=== PATIENT | male | born 1985 | race Caucasian/White ===

== ENCOUNTER 2024-11-27 13:52 | Inpatient (IN) | payer MEDICAID, OTHER ==
[~2024-11-27] VITALS: Ht 180.3 cm; Wt 69.3 kg
[2024-11-27 14:25] VITALS: PULSE 87; RESP 17; O2SAT 98
[2024-11-27 15:17] VITALS: PULSE 108; RESP 22; O2SAT 98
--- NOTE | 2024-11-27 16:09 | ED.PDOC ---
History of Present Illness HPI Comments 39-year-old male BIBA with prior medical history with EtOH in the chief complaint of mental health. reports the patient binge drinking for the past two weeks, as well as fentanyl use, last known on Nov 14 2024. Spouse stated the patient was A&Ox4 this morning but eventually dropped the patient off of the crisis Center before the patient went manic. Spouse did not specify when she said manic. Patient has been 5150 before. Crisis Center patient is becoming more altered and was hypertensive of 140 systolic, so the patient was unable to be discharged. When patient arrived to the ER the patient is stiff in his unable to talk. Denies chills, fever, N/V/D, SOB, CP. No other associated symptoms, modifiers, recent injuries or sick contacts present at this time. Chief Complaint: Mental Health Time Seen by MD: 14:45 Primary Care Provider: DONT HAVE ONE Reviewed Notes: Nurses Notes, [employer] Attendant Notes, Medications, Allergies Allergies: Coded Allergies: Procaine (Verified Allergy, Unknown, 11/10/15) Information Source: Patient Mode of Arrival: EMS Severity: Moderate Timing: Hours Duration: Since onset, Hours Prehospital treatment: None Past Medical History Past Medical History (Other): ETOH Surgical History: Denies all surgeries Family History Family History: Reviewed,noncontributory to illness, Unknown Social History Smoker: Unknown Alcohol: Unknown Drugs: Unknown Lives In: Home Unable to Obtain due to: Altered Mental Status All Other Systems: Reviewed and Negative Physical Exam Exam Comments Patient awake and alert but eyes are looking straight up to the ceiling, patient does not respond to my questioning, does not move any extremity General Appearance: Normal, Thin HEENT: Normal ENT Inspection, Pharynx Normal, TMs Normal Neck: Normal, Normal Inspection Respiratory: Lungs Clear, No Respiratory Distress, Normal Breath Sounds Cardiovascular: Normal Peripheral Pulses, Regular Rate/Rhythm Breast Exam: Deferred Gastrointestinal: Non Tender, No Pulsatile Mass, Normal Bowel Sounds, Soft Genitalia: Deferred Pelvic: Deferred Rectal: Deferred Extremities: No calf tenderness, Normal capillary refill, Normal inspection, Normal range of motion, Non-tender, No pedal edema Musculoskeletal : Apperance: Normal Neurologic: Alert, Depressed Affect, No Motor Deficits, Other (Flat, looking at the ceiling. Does not respond to my questioning.) Cerebellar Function: Normal Reflexes: Normal Skin: Dry, Normal Color, Warm Lymphatic: No Adenopathy Was a procedure done? Was a procedure done?: No Differential Dx Considerations may include: Alcohol withdrawal, drug overdose, acute farheen, dehydration electrolyte abnormality X-Ray, Labs, Meds, VS Vital Signs Date Time Temp Pulse Resp B/P (MAP) Pulse Ox O2 Delivery O2 Flow Rate FiO2 11/27/24 17:22 98.7 94 16 130/89 (103) 98 98.7 11/27/24 16:15 116 11/27/24 15:17 108 22 98 Room Air* 0 21 11/27/24 15:14 98.3 108 22 157/103 (121) 98 98.3 11/27/24 14:35 97.8 102 18 146/111 (123) 98 97.8 Lab Test 11/27/24 17:03 11/27/24 16:51 Range/Units Urine Opiates Screen Neg NEGATIVE Urine Fentanyl Screen Pos NEGATIVE Urine Barbiturates Screen Neg NEGATIVE Urine Phencyclidine Screen Neg NEGATIVE Urine Amphetamines Screen Neg NEGATIVE Urine Benzodiazepines Screen Neg NEGATIVE Urine Cocaine Screen Pos NEGATIVE Urine Cannabinoids Screen Neg NEGATIVE White Blood Count 4.8 4.4-10.8 10^3/uL Red Blood Count 4.28 L 4.5-5.90 10^6/uL Hemoglobin 14.6 13.5-17.5 g/dL Hematocrit 42.6 41.0-53.0 % Mean Corpuscular Volume 99.5 80.0-100.0 fL Mean Corpuscular Hemoglobin 34.0 H 28.0-32.0 pg Mean Corpuscular Hemoglobin Concent 34.2 32.0-36.0 g/dL Red Cell Distribution Width 14.3 11.8-14.3 % Platelet Count 236 140-450 10^3/uL Mean Platelet Volume 7.3 6.9-10.8 fL Neutrophils (%) (Auto) 73.7 37.0-80.0 % Lymphocytes (%) (Auto) 11.7 10.0-50.0 % Monocytes (%) (Auto) 13.7 H 0.0-12.0 % Eosinophils (%) (Auto) 0.2 0.0-7.0 % Basophils (%) (Auto) 0.7 0.0-2.0 % Neutrophils # (Auto) 3.6 1.6-8.6 10 ^3/uL Lymphocytes # (Auto) 0.6 0.4-5.4 10 ^3/uL Monocytes # (Auto) 0.7 0-1.3 10 ^3/uL Eosinophils # (Auto) 0 0-0.8 10 ^3/uL Basophils # (Auto) 0 0-0.2 10 ^3/uL Nucleated Red Blood Cells 0.1 % Sodium Level 137 136-145 mmol/L Potassium Level 3.3 L 3.5-5.1 mmol/L Chloride Level 103 98-107 mmol/L Carbon Dioxide Level 22 20-31 mmol/L Anion Gap 12 5-15 Blood Urea Nitrogen < 5 L 9-23 mg/dL Creatinine 0.69 L 0.700-1.30 mg/dL Glomerular Filtration Rate Calc 121 >90 mL/min BUN/Creatinine Ratio 7.2 L 10.0-20.0 Serum Glucose 93 74-106 mg/dL Calcium Level 9.7 8.7-10.4 mg/dL Total Bilirubin 1.2 H 0.2-1.0 mg/dL Aspartate Amino Transferase (AST) 71 H 13-40 U/L Alanine Aminotransferase (ALT) 55 H 7-40 U/L Alkaline Phosphatase 116 46-116 U/L Total Protein 7.4 5.7-8.2 g/dL Albumin 4.6 3.2-4.8 g/dL Salicylates Level < 3.0 -30 mg/dL Acetaminophen Level < 2.0 L 10.0-20.0 UG/ML Plasma/Serum Blood Alcohol < 3.0 <10 mg/dL Current Medications Medications (Trade) Dose Ordered Sig/Sharon Route Start Time Stop Time Status Last Admin Lorazepam (Ativan Inj) 1 mg ONCE ONCE IV 11/27/24 16:15 11/27/24 16:16 DC 11/27/24 16:17 39-year-old male here with potentially alcohol withdrawal/manic episode. He is brought by EMS. At this time patient does not answer my questions. Although he is awake and alert. However while in the ER he did begin to become tremulous. Slowly he was able to communicate with some members of our nursing staff. However nursing staff approached me that he was now tremulous and concern for acute alcohol withdrawal. Given he was tremulous I did order Ativan IV. He was agreeable to take Ativan 0.25 IV only. After the Ativan 0.25, he states he felt much better. And he was able to speak to me. Patient states he drinks sign ificant amount of alcohol proximally 32 oz of hard liquor a day. Patient however does want to become sober. He states he was actively hallucinating and hearing 3 people talk to him at the time. He is tremulous on my examination. CIWA score is greater than 19. Blood work has returned which does demonstrate mild hypokalemia of 3.3, mild hyperbilirubinemia at 1.2, and urine drug screen is positive for both fentanyl and cocaine. At this time I have contacted admitting team for admission. Time of 1ST Reevaluation: 15:15 Reevaluation 1ST: Unchanged Time of 2ND Reevaluation: 16:42 Reevaluation 2ND: Improved Patient Education/Counseling: Diagnosis, Treatment, Prognosis Family Education/Counseling: Diagnosis, Treatment, Prognosis Departure 1 Departure Time of Disposition: 16:42 Impression: Primary Impression: Alcohol withdrawal delirium, acute, hyperactive Additional Impressions: Drug abuse, cocaine type Hyperbilirubinemia Hypokalemia Disposition: ADMITTED INPATIENT Condition: Fair Critical Care Note Critical Care Time?: Yes (35 min-critical care time only) Critical care comment: Patient required immediate assessment by myself seconary acute alcohol withdrawal with delirium and active tremors concerning for significant alcohol withdrawal. Patient was immediately given Ativan IV by myself. Patient required continuous monitoring in the ER . Time spent was actively managing the patient, communicating with nursing staff, communicating with his and the patient Stability Stability form required: No Heart Score Heart Score: Heart Score Response (Comments) Value History N/A 0 EKG N/A 0 Age N/A 0 Risk Factors N/A 0 Troponin N/A 0 Total 0 I personally scribed for CHERELLE MADISON MD ([email or web address]) on 11/27/24 at 16:09. Electronically submitted by Josias Hahn ([email or web address]). CHERELLE MADISON MD November 27, 2024 16:09
[2024-11-27] MEDS: LORazepam 2MG/ML-1ML VIAL IV ONE ×2 (16:17→18:00)
[2024-11-27 17:04] LABS: Basophils # (auto) 0 10 ^3/uL (0-0.2); Basophils % (auto) 0.7 % (0.0-2.0); Eosinophils # (auto) 0 10 ^3/uL (0-0.8); Eosinophils % (auto) 0.2 % (0.0-7.0); Hematocrit 42.6 % (41.0-53.0); Hemoglobin 14.6 g/dL (13.5-17.5); Lymphocytes # (auto) 0.6 10 ^3/uL (0.4-5.4); Lymphocytes % (auto) 11.7 % (10.0-50.0); Mean Corpuscular Hgb Conc. 34.2 g/dL (32.0-36.0); Mean Corpuscular Volume 99.5 fL (80.0-100.0); Monocytes # (auto) 0.7 10 ^3/uL (0-1.3); Monocytes % (auto) 13.7 % (0.0-12.0); Neutrophils # (auto) 3.6 10 ^3/uL (1.6-8.6); Neutrophils % (auto) 73.7 % (37.0-80.0); Nucleated Red Blood Cells % 0.1 %; Platelet Count (auto) 236 10^3/uL (140-450); Red Blood Cells 4.28 10^6/uL (4.5-5.90); Red Cell Distribution Width 14.3 % (11.8-14.3); White Blood Cell 4.8 10^3/uL (4.4-10.8)
[2024-11-27 17:20] LABS: Albumin 4.6 g/dL (3.2-4.8); Alkaline Phosphatase 116 U/L (46-116); Anion Gap 12 (5-15); Calcium 9.7 mg/dL (8.7-10.4); Carbon Dioxide 22 mmol/L (20-31); Chloride 103 mmol/L (98-107); Glucose 93 mg/dL (74-106); Sodium 137 mmol/L (136-145); Total Protein 7.4 g/dL (5.7-8.2)
[2024-11-27 17:20] LABS: Cocaine Screen, Urine Pos (NEGATIVE)
[2024-11-27 17:21] LABS: Bilirubin, Total 1.2 mg/dL (0.2-1.0)
[2024-11-27 17:23] LABS: Amphetamine Screen, Urine Neg (NEGATIVE); Barbiturate Scree,Urine Neg (NEGATIVE); Benzodiazephine Screen, Urine Neg (NEGATIVE); Cannabinoid Screen, Urine Neg (NEGATIVE); Opiate Scree,Urine Neg (NEGATIVE); Phencyclidine Screen, Urine Neg (NEGATIVE)
[2024-11-27 17:23] LABS: Acetaminophen < 2.0 UG/ML (10.0-20.0); Alanine Aminotransferase 55 U/L (7-40); Aspartate Aminotransferase 71 U/L (13-40); BUN/Creatinine Ratio 7.2 (10.0-20.0); Blood Alcohol < 3.0 mg/dL (<10); Blood Urea Nitrogen < 5 mg/dL (9-23); Potassium 3.3 mmol/L (3.5-5.1); Salicylate < 3.0 mg/dL (-30)
[2024-11-27] MEDS: LORazepam 2MG/ML-1ML VIAL IV PRN (18:45)
[2024-11-27] MEDS ORDERED: ONDANSETRON HCL 4 MG/2 ML VIAL IV PRN (19:15)
[2024-11-27] MEDS ORDERED: ACETAMINOPHEN 325 MG TAB PO PRN (19:15)
[2024-11-27] MEDS ORDERED: DOCUSATE SOD 100 MG CAP PO PRN (19:15)
--- NOTE | 2024-11-27 19:27 | DVHHP2 ---
History of Present Illness Reason for Visit: Altered mental status History of Present Illness The patient is a 39-year-old male disorganized with past medical history of mental health issue on 5149 prior, EtOH, and polydrug abuse presented to [facility] ED for evaluation of altered mental status. As reported by , patient had a binge drinking for the past 2 weeks as well as fentanyl use, last known on November 14, 2024. Spouse stated the patient was alert and oriented x4 this morning, but eventually dropped the patient off of the crisis Center before the patient went manic. Spouse did not specify when she said manic. Patient was seen and evaluated in the ED, laboratory data shows WBC 4.8, platelets 236, sodium 137, potassium 3.3, BUN 5, creatinine 0.69, glucose 93, AST 71, ALT 55, total bilirubin 1.2, serum alcohol < 3.0, toxicology positive for fentanyl and cocaine. Patient was given IV Ativan 2 mg x 1, please see medication orders section in the computer. On my assessment, at bedside, patient remains disorganized, unkempt, tremors, restlessness, no diaphoresis, no dizziness, no shortness of breath, no nausea, no vomiting, no fever, no chills. Patient was admitted for further evaluation and medical management. Past Medical History Mental health issue on 5149, EtOH, polydrug abuse. Past Surgical History Denies all surgeries Family History Reviewed, noncontributory to the management of this case. Past Social History The patient lives at home, denies smoking, alcohol or illicit drugs abuse. Review of Systems Constitutional: No: Fever, Chills, Sweats, Weakness, Malaise, Other Eyes: No: Pain, Vision change, Conjunctivae inflammation, Eyelid inflammation, Other, Redness ENT: No: Ear pain, Ear discharge, Nose pain, Nose discharge, Nose congestion, Mouth pain, Mouth swelling, Throat pain, Throat swelling, Other Respiratory: No: Cough, Dry, Shortness of breath, SOB with excertion, Wheezing, Hemoptysis, Pleuritic Pain, Sputum, Wheezing, Other Cardiovascular: No: Chest Pain, Palpitations, Orthopnea, Paroxysmal Noc. Dyspnea, Edema, Lt Headedness, Other Gastrointestinal: No: Nausea, Vomiting, Abdominal Pain, Diarrhea, Constipation, Melena, Hematochezia, Other Genitourinary: No Dysuria, No Frequency, No Incontinence, No Hematuria, No Retention, No Other Musculoskeletal: No: other, neck pain, shoulder pain, arm pain, back pain, hand pain, leg pain, foot pain Skin: No: Rash, Lesions, Jaundice, Bruising, Other Neurological: Confusion, Other (Tremors); No: Weakness, Numbness, Incoordination, Change in speech, Seizures Allergies: Coded Allergies: Procaine (Verified Allergy, Unknown, 11/10/15) Medications Current Medications Medications Dose Ordered Sig/Sharon Route Start Time Stop Time Status Last Admin Dose Admin Lorazepam 2 mg Q2HPRN PRN IV 11/27/24 18:30 11/27/24 18:45 2 MG Sodium Chloride 1,000 ml @ 60 mls/hr [id number] IV 11/27/24 19:15 Ondansetron HCl 4 mg Q4HP PRN IV 11/27/24 19:15 Docusate Sodium 100 mg BIDPRN PRN PO 11/27/24 19:15 Acetaminophen 650 mg Q6HP PRN PO 11/27/24 19:15 Exam Vital Signs Vital Signs Date Time Temp Pulse Resp B/P (MAP) Pulse Ox O2 Delivery O2 Flow Rate FiO2 11/27/24 17:22 98.7 94 16 130/89 (103) 98 98.7 11/27/24 15:17 Room Air* 0 21 General Appearance: Alert, Cooperative, No acute distress, Other (Oriented x2) HEENT: Atraumatic, PERRLA, EOMI, Mucous membr. moist/pink Respiratory: Clear to auscultation, Normal air movement Cardiovascular: Regular rate, Normal S1, Normal S2, No murmurs Abdominal: Normal bowel sounds, Soft, No tenderness, No hepatospenomegaly, No masses Extremities: No clubbing, No cyanosis, No edema, Normal pulses Skin: No rashes, No breakdown Neuro: Normal speech, Normal tone, Sensation intact, Cranial nerves 3-12 NL, Reflexes 2+, Other (Unsteady gait) Psych/Mental Status: Mood NL, Other (Altered mental status) Labs/Xrays Labs Test 11/27/24 17:03 11/27/24 16:51 Range/Units Urine Opiates Screen Neg NEGATIVE Urine Fentanyl Screen Pos NEGATIVE Urine Barbiturates Screen Neg NEGATIVE Urine Phencyclidine Screen Neg NEGATIVE Urine Amphetamines Screen Neg NEGATIVE Urine Benzodiazepines Screen Neg NEGATIVE Urine Cocaine Screen Pos NEGATIVE Urine Cannabinoids Screen Neg NEGATIVE White Blood Count 4.8 4.4-10.8 10^3/uL Red Blood Count 4.28 L 4.5-5.90 10^6/uL Hemoglobin 14.6 13.5-17.5 g/dL Hematocrit 42.6 41.0-53.0 % Mean Corpuscular Volume 99.5 80.0-100.0 fL Mean Corpuscular Hemoglobin 34.0 H 28.0-32.0 pg Mean Corpuscular Hemoglobin Concent 34.2 32.0-36.0 g/dL Red Cell Distribution Width 14.3 11.8-14.3 % Platelet Count 236 140-450 10^3/uL Mean Platelet Volume 7.3 6.9-10.8 fL Neutrophils (%) (Auto) 73.7 37.0-80.0 % Lymphocytes (%) (Auto) 11.7 10.0-50.0 % Monocytes (%) (Auto) 13.7 H 0.0-12.0 % Eosinophils (%) (Auto) 0.2 0.0-7.0 % Basophils (%) (Auto) 0.7 0.0-2.0 % Neutrophils # (Auto) 3.6 1.6-8.6 10 ^3/uL Lymphocytes # (Auto) 0.6 0.4-5.4 10 ^3/uL Monocytes # (Auto) 0.7 0-1.3 10 ^3/uL Eosinophils # (Auto) 0 0-0.8 10 ^3/uL Basophils # (Auto) 0 0-0.2 10 ^3/uL Nucleated Red Blood Cells 0.1 % Sodium Level 137 136-145 mmol/L Potassium Level 3.3 L 3.5-5.1 mmol/L Chloride Level 103 98-107 mmol/L Carbon Dioxide Level 22 20-31 mmol/L Anion Gap 12 5-15 Blood Urea Nitrogen < 5 L 9-23 mg/dL Creatinine 0.69 L 0.700-1.30 mg/dL Glomerular Filtration Rate Calc 121 >90 mL/min BUN/Creatinine Ratio 7.2 L 10.0-20.0 Serum Glucose 93 74-106 mg/dL Calcium Level 9.7 8.7-10.4 mg/dL Total Bilirubin 1.2 H 0.2-1.0 mg/dL Aspartate Amino Transferase (AST) 71 H 13-40 U/L Alanine Aminotransferase (ALT) 55 H 7-40 U/L Alkaline Phosphatase 116 46-116 U/L Total Protein 7.4 5.7-8.2 g/dL Albumin 4.6 3.2-4.8 g/dL Salicylates Level < 3.0 -30 mg/dL Acetaminophen Level < 2.0 L 10.0-20.0 UG/ML Plasma/Serum Blood Alcohol < 3.0 <10 mg/dL Assessment/Plan Assessment/Plan Altered mental status Hypokalemia Polydrug abuse Elevated liver enzymes Plan 1. Admit to telemetry unit 2. Breathing treatment 3. Pain control management 4. Management of fluids and electrolytes 5. Consultation for hospitalist 6. Diagnostic tests chest x-ray 7. DVT prophylaxis on SCDs 8. Repeat labs CBC, CMP in a.m. 9. Continue with current medical management 10. Treatment plan discussed with patient/ and RN. Patient/ verbalized understanding. Plan discussed with: Patient, Other (RN) My Orders Orders - SANDOR LUNDBERG DNP Procedure Category Date Status Time Allergies ELVIN 11/27/24 In Process 19:06 Code Status CODE 11/27/24 Transmitted 19:06 2 Gm Sodium Diet DIET 11/28/24 Transmitted Breakfast Sodium Chloride 0.9% PHA 11/27/24 In Process 19:15 Oxygen Per Hour RT 11/27/24 Transmitted 19:06 Ondansetron Hcl PHA 11/27/24 In Process (Zofran) 19:15 Docusate Sodium PHA 11/27/24 In Process Capsule (Colace 19:15 Complete Blood Count LAB 11/28/24 Verified 04:00 Comprehensive LAB 11/28/24 Verified Metabolic Panel 04:00 Condition: Serious ELVIN 11/27/24 In Process 19:06 Acetaminophen Tablet PHA 11/27/24 In Process (Tylenol Tablet) 19:15 Bedrest With Bathroom ELVIN 11/27/24 In Process Privileg 19:06 Sequential ELVIN 11/27/24 In Process Compression Device Problem List: (1) Altered mental status (2) Hypokalemia (3) Polydrug abuse (4) Elevated liver enzymes Date of Service: November 27, 2024 Billing Provider: SANDOR LUNDBERG DNP Common Visit Codes: [id number] INP/OBS CARE (HIGH) SANDOR LUNDBERG DNP November 27, 2024 19:27
[2024-11-27] MEDS ORDERED: NITROGLYCERIN 0.4 MG SL TAB SL PRN (19:30)
[2024-11-27] MEDS ORDERED: MORPHINE SULFATE INJ 2 MG/ml SYRG IV PRN (19:30)
[2024-11-27] MEDS: SODIUM CHLORIDE 0.9% 1,000 ML IV SCH (19:50)
[2024-11-27] MEDS ORDERED: LORazepam 2MG/ML-1ML VIAL IV ONE (20:00)
[2024-11-27] MEDS: MELATONIN 5 MG TAB PO ONE (20:13)
[2024-11-27] MEDS: diphenhdrAMINE HCL 50 MG/1 ML VL ONE (21:08)
[2024-11-27] MEDS: diphenhdrAMINE HCL 50 MG/1 ML VL IM ONE (21:10)
[2024-11-27] MEDS: MULTIPLE VITAMIN TAB PO ONE (21:25)
[2024-11-27] MEDS: THIAMINE 100mg/ml INJ (200mg/2ml VIAL) IV ONE (21:25)
[2024-11-27 22:00] VITALS: PULSE 102; RESP 18; O2SAT 98
[2024-11-28] MEDS: FOLIC ACID 1 MG in D5W 5% 50 ML INJ ONE (00:36)
[2024-11-28] MEDS: LORazepam 2MG/ML-1ML VIAL ONE ×2 (00:36→20:29)
[2024-11-28] MEDS: HALOPERIDOL LACTATE 5 MG/ML INJ VIAL IM ONE (00:54)
[2024-11-28 04:40] LABS: Basophils # (auto) 0 10 ^3/uL (0-0.2); Basophils % (auto) 0.6 % (0.0-2.0); Eosinophils # (auto) 0 10 ^3/uL (0-0.8); Eosinophils % (auto) 0.7 % (0.0-7.0); Hematocrit 45.2 % (41.0-53.0); Hemoglobin 15.4 g/dL (13.5-17.5); Lymphocytes # (auto) 1.3 10 ^3/uL (0.4-5.4); Lymphocytes % (auto) 22.2 % (10.0-50.0); Mean Corpuscular Hemoglobin 34.6 pg (28.0-32.0); Mean Corpuscular Hgb Conc. 34.2 g/dL (32.0-36.0); Mean Corpuscular Volume 101.3 fL (80.0-100.0); Monocytes # (auto) 0.9 10 ^3/uL (0-1.3); Monocytes % (auto) 16.1 % (0.0-12.0); Neutrophils # (auto) 3.5 10 ^3/uL (1.6-8.6); Neutrophils % (auto) 60.4 % (37.0-80.0); Nucleated Red Blood Cells % 0.1 %; Platelet Count (auto) 229 10^3/uL (140-450); Red Blood Cells 4.46 10^6/uL (4.5-5.90); Red Cell Distribution Width 14.3 % (11.8-14.3); White Blood Cell 5.8 10^3/uL (4.4-10.8)
[2024-11-28 04:48] LABS: Alkaline Phosphatase 113 U/L (46-116); Calcium 9.4 mg/dL (8.7-10.4); Carbon Dioxide 26 mmol/L (20-31); Chloride 102 mmol/L (98-107)
[2024-11-28 04:49] LABS: Albumin 4.7 g/dL (3.2-4.8); Anion Gap 12 (5-15); BUN/Creatinine Ratio 8.3 (10.0-20.0); Glucose 97 mg/dL (74-106); Potassium 3.6 mmol/L (3.5-5.1); Sodium 140 mmol/L (136-145); Total Protein 7.7 g/dL (5.7-8.2)
[2024-11-28 05:15] LABS: Alanine Aminotransferase 52 U/L (7-40); Aspartate Aminotransferase 74 U/L (13-40); Bilirubin, Total 1.4 mg/dL (0.2-1.0); Blood Urea Nitrogen 8 mg/dL (9-23)
[2024-11-28] MEDS: FOLIC ACID 1 MG in D5W 5% 50 ML INJ SCH (09:19)
[2024-11-28] MEDS: THIAMINE 100mg/ml INJ (200mg/2ml VIAL) IV SCH (09:49)
[2024-11-28] MEDS: MULTIPLE VITAMIN TAB PO SCH (09:49)
--- NOTE | 2024-11-28 13:47 | DVHPN2 ---
Subjective in bed resting having withdrawal symptoms with tremors, anxiety Changes from previous H/P or p: No Changes Eyes: No Pain, No Vision change, No Conjunctivae inflammation, No Eyelid inflammation, No Other, No Redness ENT: No Ear pain, No Ear discharge, No Nose pain, No Nose discharge, No Nose congestion, No Mouth pain, No Mouth swelling, No Throat pain, No Throat swelling, No Other Cardiovascular: No Chest Pain, No Palpitations, No Orthopnea, No Paroxysmal Noc. Dyspnea, No Edema, No Lt Headedness, No Other Respiratory: No Cough, No Dry, No Shortness of breath, No SOB with excertion, No Wheezing, No Hemoptysis, No Pleuritic Pain, No Sputum, No Other Gastrointestinal: No Nausea, No Vomiting, No Abdominal Pain, No Diarrhea, No Constipation, No Melena, No Hematochezia, No Other Genitourinary: No Dysuria, No Frequency, No Incontinence, No Hematuria, No Retention, No Other Musculoskeletal: No other, No neck pain, No shoulder pain, No arm pain, No back pain, No hand pain, No leg pain, No foot pain Skin: No Rash, No Lesions, No Jaundice, No Bruising, No Other Objective Vitals Vital Signs Date Time Temp Pulse Resp B/P (MAP) Pulse Ox O2 Delivery O2 Flow Rate FiO2 11/28/24 12:00 97.8 78 15 106/71 (83) 95 97.8 11/28/24 07:43 Room Air* 0 21 General Appearance: Alert, Oriented X3 Lungs: Clear to auscultation Cardiovascular: Regular rate, Normal S1, Normal S2 Medications Current Medications Medications Dose Ordered Sig/Sharon Route Start Time Stop Time Status Last Admin Dose Admin Lorazepam 2 mg Q2HPRN PRN IV 11/27/24 18:30 11/28/24 00:35 2 MG Sodium Chloride 1,000 ml @ 60 mls/hr [id number] IV 11/27/24 19:15 11/27/24 19:50 60 MLS/HR Ondansetron HCl 4 mg Q4HP PRN IV 11/27/24 19:15 Docusate Sodium 100 mg BIDPRN PRN PO 11/27/24 19:15 Acetaminophen 650 mg Q6HP PRN PO 11/27/24 19:15 Nitroglycerin 0.4 mg Q5MINP PRN SL 11/27/24 19:30 Morphine Sulfate 2 mg Q30M PRN IV 11/27/24 19:30 Thiamine HCl 100 mg DAILY IV 11/28/24 10:00 11/28/24 09:49 100 MG Folic Acid 1 mg/ Dextrose 50.2 ml @ 200.8 mls/ hr DAILY INJ 11/28/24 10:00 11/28/24 09:19 200.8 MLS/HR Multivitamins 1 tab DAILY PO 11/28/24 10:00 11/28/24 09:49 1 TAB Laboratory Results Laboratory Tests 11/28/24 04:20 Chemistry Test 11/27/24 16:51 11/28/24 04:20 Albumin 4.6 g/dL (3.2-4.8) 4.7 g/dL (3.2-4.8) Calcium Level 9.7 mg/dL (8.7-10.4) 9.4 mg/dL (8.7-10.4) Total Protein 7.4 g/dL (5.7-8.2) 7.7 g/dL (5.7-8.2) LFT Test 11/27/24 16:51 11/28/24 04:20 Alanine Aminotransferase (ALT) 55 U/L (7-40) H 52 U/L (7-40) H Alkaline Phosphatase 116 U/L (46-116) 113 U/L (46-116) Aspartate Amino Transferase (AST) 71 U/L (13-40) H 74 U/L (13-40) H Total Bilirubin 1.2 mg/dL (0.2-1.0) H 1.4 mg/dL (0.2-1.0) H Assessment/Plan Assessment/Plan Altered mental status Hypokalemia Polydrug abuse Elevated liver enzymes Alcohol withdrawal monitor liver enzymes start withdrawal protocol Plan discussed with: Patient Date of Service: November 28, 2024 Billing Provider: MEGHNA VASQUEZ MD Common Visit Codes: [id number] INP/OBS CARE(HIGH) MEGHNA VASQUEZ MD November 28, 2024 13:47
[2024-11-28 15:16] LABS: Hepatitis B Surface Antigen Negative (Negative); Hepatitis C Antibody Negative (Negative)
[2024-11-28 17:42] VITALS: BP 121/95; PULSE 96; RESP 16; TEMP 98.4; O2SAT 98
[2024-11-28 17:56] VITALS: PULSE 96; RESP 16; O2SAT 0
[2024-11-28 20:00] VITALS: PULSE 102
[2024-11-28 21:00] VITALS: BP 135/92; PULSE 105; RESP 21; TEMP 98; O2SAT 97
[2024-11-29] VITALS (9 sets, daily range): BP systolic 118–132; BP diastolic 77–90; PULSE 91–114; RESP 17–21; TEMP 98–98.7; O2SAT 96–98
[2024-11-29] MEDS: LORazepam 2MG/ML-1ML VIAL ONE (01:39)
[2024-11-29] MEDS ORDERED: ACETAMINOPHEN 325 MG TAB PO PRN (10:45)
[2024-11-29] MEDS ORDERED: NITROGLYCERIN 0.4 MG SL TAB SL PRN (10:45)
[2024-11-29] MEDS ORDERED: DOCUSATE SOD 100 MG CAP PO PRN (10:45)
[2024-11-29] MEDS ORDERED: ONDANSETRON HCL 4 MG/2 ML VIAL IV PRN (10:45)
[2024-11-29] MEDS ORDERED: MORPHINE SULFATE INJ 2 MG/ml SYRG IV PRN (10:45)
[2024-11-29] MEDS: LORazepam 2MG/ML-1ML VIAL IV PRN (10:49)
[2024-11-29] MEDS: SODIUM CHLORIDE 0.9% 1,000 ML IV SCH (10:49)
--- NOTE | 2024-11-29 11:09 | DVHPN2 ---
Subjective Still having anxiety and tremors Changes from previous H/P or p: Changes Eyes: No Pain, No Vision change, No Conjunctivae inflammation, No Eyelid inflammation, No Other, No Redness ENT: No Ear pain, No Ear discharge, No Nose pain, No Nose discharge, No Nose congestion, No Mouth pain, No Mouth swelling, No Throat pain, No Throat swelling, No Other Cardiovascular: No Chest Pain, No Palpitations, No Orthopnea, No Paroxysmal Noc. Dyspnea, No Edema, No Lt Headedness, No Other Respiratory: No Cough, No Dry, No Shortness of breath, No SOB with excertion, No Wheezing, No Hemoptysis, No Pleuritic Pain, No Sputum, No Other Gastrointestinal: No Nausea, No Vomiting, No Abdominal Pain, No Diarrhea, No Constipation, No Melena, No Hematochezia, No Other Genitourinary: No Dysuria, No Frequency, No Incontinence, No Hematuria, No Retention, No Other Musculoskeletal: No other, No neck pain, No shoulder pain, No arm pain, No back pain, No hand pain, No leg pain, No foot pain Skin: No Rash, No Lesions, No Jaundice, No Bruising, No Other Objective Vitals Vital Signs Date Time Temp Pulse Resp B/P (MAP) Pulse Ox O2 Delivery O2 Flow Rate FiO2 11/29/24 08:53 98.7 109 19 132/90 (104) 97 98.7 11/29/24 08:00 Room Air* 0 21 Intake/Output Intake and Output 11/29/24 07:00 Intake Total 2020 ml Balance 2020 ml Intake Oral 1300 ml IV Total 720 ml # Voids 5 # Bowel Movements 1 General Appearance: Alert, Oriented X3 Lungs: Clear to auscultation Cardiovascular: Regular rate, Normal S1, Normal S2 Medications Current Medications Medications Dose Ordered Sig/Sharon Route Start Time Stop Time Status Last Admin Dose Admin Multivitamins 1 tab DAILY PO 11/28/24 10:00 11/29/24 10:49 1 TAB Lorazepam 2 mg Q2HPRN PRN IV 11/29/24 10:45 11/29/24 10:49 2 MG Sodium Chloride 1,000 ml @ 60 mls/hr [id number] IV 11/29/24 10:45 11/29/24 10:49 60 MLS/HR Ondansetron HCl 4 mg Q4HP PRN IV 11/29/24 10:45 Docusate Sodium 100 mg BIDPRN PRN PO 11/29/24 10:45 Acetaminophen 650 mg Q6HP PRN PO 11/29/24 10:45 Nitroglycerin 0.4 mg Q5MINP PRN SL 11/29/24 10:45 Morphine Sulfate 2 mg Q30M PRN IV 11/29/24 10:45 Folic Acid 1 mg DAILY PO 11/30/24 10:00 Thiamine HCl 100 mg DAILY PO 11/30/24 10:00 Laboratory Results Laboratory Tests 11/28/24 04:20 Assessment/Plan Assessment/Plan Alcohol withdrawal Hypokalemia, corrected Alcohol use disorder Polydrug abuse Elevated liver function tests Plan Continue IV fluids Benzodiazepines p.r.n. for withdrawal symptoms, we will switch to p.o. Librium Multivitamins Monitor closely The rest of the management will depend on the hospital course Plan discussed with: Patient Date of Service: November 29, 2024 Billing Provider: RHONDA AZUL MD Common Visit Codes: [id number] INP/OBS CARE(HIGH) RHONDA AZUL MD November 29, 2024 11:09
[2024-11-29] MEDS: chlordiazePOXIDE HCL 5 MG CAP PO PRN (16:32)
[2024-11-30] VITALS (7 sets, daily range): BP systolic 126–138; BP diastolic 88–94; PULSE 82–112; RESP 17–21; TEMP 97.9–98.2; O2SAT 97–99
--- NOTE | 2024-11-30 06:42 | DVHINCON2 ---
Date of Service if different f: November 30, 2024 Time of Service: 05:51 Consultation ([facility]) Consulting Physician: MAR MACE MD Labs Laboratory Tests Test 11/27/24 16:51 11/27/24 17:03 11/28/24 04:20 Salicylates Level < 3.0 mg/dL (-30) Acetaminophen Level < 2.0 UG/ML (10.0-20.0) Plasma/Serum Blood Alcohol < 3.0 mg/dL (<10) Urine Opiates Screen Neg (NEGATIVE) Urine Fentanyl Screen Pos (NEGATIVE) Urine Barbiturates Screen Neg (NEGATIVE) Urine Phencyclidine Screen Neg (NEGATIVE) Urine Amphetamines Screen Neg (NEGATIVE) Urine Benzodiazepines Screen Neg (NEGATIVE) Urine Cocaine Screen Pos (NEGATIVE) Urine Cannabinoids Screen Neg (NEGATIVE) White Blood Count 5.8 10^3/uL (4.4-10.8) Red Blood Count 4.46 10^6/uL (4.5-5.90) Hemoglobin 15.4 g/dL (13.5-17.5) Hematocrit 45.2 % (41.0-53.0) Mean Corpuscular Volume 101.3 fL (80.0-100.0) Mean Corpuscular Hemoglobin 34.6 pg (28.0-32.0) Mean Corpuscular Hemoglobin Concent 34.2 g/dL (32.0-36.0) Red Cell Distribution Width 14.3 % (11.8-14.3) Platelet Count 229 10^3/uL (140-450) Mean Platelet Volume 7.4 fL (6.9-10.8) Neutrophils (%) (Auto) 60.4 % (37.0-80.0) Lymphocytes (%) (Auto) 22.2 % (10.0-50.0) Monocytes (%) (Auto) 16.1 % (0.0-12.0) Eosinophils (%) (Auto) 0.7 % (0.0-7.0) Basophils (%) (Auto) 0.6 % (0.0-2.0) Neutrophils # (Auto) 3.5 10 ^3/uL (1.6-8.6) Lymphocytes # (Auto) 1.3 10 ^3/uL (0.4-5.4) Monocytes # (Auto) 0.9 10 ^3/uL (0-1.3) Eosinophils # (Auto) 0 10 ^3/uL (0-0.8) Basophils # (Auto) 0 10 ^3/uL (0-0.2) Nucleated Red Blood Cells 0.1 % Sodium Level 140 mmol/L (136-145) Potassium Level 3.6 mmol/L (3.5-5.1) Chloride Level 102 mmol/L (98-107) Carbon Dioxide Level 26 mmol/L (20-31) Anion Gap 12 (5-15) Blood Urea Nitrogen 8 mg/dL (9-23) Creatinine 0.96 mg/dL (0.700-1.30) Glomerular Filtration Rate Calc 104 mL/min (>90) BUN/Creatinine Ratio 8.3 (10.0-20.0) Serum Glucose 97 mg/dL (74-106) Calcium Level 9.4 mg/dL (8.7-10.4) Total Bilirubin 1.4 mg/dL (0.2-1.0) Aspartate Amino Transf (AST/SGOT) 74 U/L (13-40) Alanine Aminotransferase (ALT/SGPT) 52 U/L (7-40) Alkaline Phosphatase 113 U/L (46-116) Total Protein 7.7 g/dL (5.7-8.2) Albumin 4.7 g/dL (3.2-4.8) Hepatitis B Surface Antigen Negative (Negative) Hepatitis C Antibody Negative (Negative) Appearance: Stated age Psychomotor activity: WNL Behavioral: Cooperative Eye contact: Appropriate Speech: WNL Affect: Appropriate Mood: Anxious Thought processes: Linear/Goal-directed Thought content: WNL Suicidal ideations: Absent Homicidal ideations: Absent Orientation: Person, Place, Time, Situation Memory intact: Recent Intellect: Average Abstractability: WNL Concentration: Adequate Attention: Adequate Judgement: WNL Insight: Fair Vitals Vital Signs Date Time Temp Pulse Resp B/P (MAP) Pulse Ox O2 Delivery O2 Flow Rate FiO2 11/30/24 01:00 98.1 83 17 126/90 (102) 97 98.1 11/29/24 20:00 Room Air* 0 21 Current medications Current Medications Medications Dose Ordered Sig/Sharon Route Start Time Stop Time Status Last Admin Dose Admin Multivitamins 1 tab DAILY PO 11/28/24 10:00 11/29/24 10:49 Sodium Chloride 1,000 ml @ 60 mls/hr [id number] IV 11/29/24 10:45 11/29/24 10:49 Ondansetron HCl 4 mg Q4HP PRN IV 11/29/24 10:45 Docusate Sodium 100 mg BIDPRN PRN PO 11/29/24 10:45 Acetaminophen 650 mg Q6HP PRN PO 11/29/24 10:45 Nitroglycerin 0.4 mg Q5MINP PRN SL 11/29/24 10:45 Morphine Sulfate 2 mg Q30M PRN IV 11/29/24 10:45 Folic Acid 1 mg DAILY PO 11/30/24 10:00 Thiamine HCl 100 mg DAILY PO 11/30/24 10:00 Chlordiazepoxide HCl 10 mg Q6HP PRN PO 11/29/24 11:15 11/29/24 22:38 Treatment plan discussed: With staff Medication adjusted: Yes Labs ordered: No Psychotherapy provided: Yes Type: Voluntary History of Present Illness Reason for Consult : psychiatric evaluation PER H&P: The patient is a 39-year-old male disorganized with past medical history of mental health issue on 5149 prior, EtOH, and polydrug abuse presented to [facility] ED for evaluation of altered mental status. As reported by , patient had a binge drinking for the past 2 weeks as well as fentanyl use, last known on November 14, 2024. Spouse stated the patient was alert and oriented x4 this morning, but eventually dropped the patient off of the crisis Center before the patient went manic. Spouse did not specify when she said manic. Patient was seen and evaluated in the ED, laboratory data shows WBC 4.8, platelets 236, sodium 137, potassium 3.3, BUN 5, creatinine 0.69, glucose 93, AST 71, ALT 55, total bilirubin 1.2, serum alcohol < 3.0, toxicology positive for fentanyl and cocaine. Patient was given IV Ativan 2 mg x 1, please see medication orders section in the computer. On my assessment, at bedside, patient remains disorganized, unkempt, tremors, restlessness, no diaphoresis, no dizziness, no shortness of breath, no nausea, no vomiting, no fever, no chills. Patient was admitted for further evaluation and medical management. PSYCHIATRIST HPI: The patient was seen and evaluated at [facility] ED via telepsychiatry platform. 39 yr old male was admitted on 11/27 for binge drinking for the past couple weeks. was taking him to crisis unit when he "became manic" so he was brought to ED and admitted for alcohol withdrawal. He reported he has a lot of anxiety and depression. He has felt really bad recently. He said he feels very depressed after a manic episode. He said he'll tend to get really anxious and his thoughts start racing and his anxiety episode where he feels helpless and out of contol may last an hour up to a day or so. He noted the anxious episodes started when he was a teenager. He had been treated at [facility] on different medications when he was a teenager. He stated he has never addressed his anxiety ad depression other than using substances. He drank heavily, at least 4-5 shots daily for the past couple years. He noted he has had withdrawal seizures in the past. He noted some vivid hallucinations with withdrawal as well. He denied having suicidal and homicidal ideation and auditory hallucinations. Past Psychiatric History : Diagnosed with drug and alcohol use. Previous 5150 hold and admitted as a teenager. No past suicide attempts. Past Medical History: none Current Medications: none NKDA Substance use: Alcohol-last drank three days ago. Drinks vodka about 4-5 shots at a time. And has been drinking heavily for the past two years. Rare MJ use. He denied use of other drugs. Social History : Lives in [place] with and 2 yr old daughter. 6 years. Stay at home Dad. 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 Formulation: This 39 yr old male appears to suffer from alcohol use disorder and likely generalized anxiety disorder. He may benefit from getting in a program to help with sobriety as well as starting medications to help reduce his anxiety such as zoloft, gabapentin and hydroxyzine. He may also benefit from outpatient therapy to address his anxiety. He does not warrant inpatient hospitalization. Plan: 1. Recommend social work consult to present him with substance use rehab options such as AA and other outpatient rehab programs. 2. Legal-Voluntary. 3. Medication: recommend CIWA with benzo replacement to prevent severe alcohol withdrawal syndrome. Recommend starting the following: Zoloft 50mg qam for anxiety reduction Gabapentin 200mg BID for anxiety reduction and to help reduce alcohol withdrawal symptoms and cravings Hydroxyzine 25mg Q8hr prn panic/anxiety for acute reduction of anxiety. 4. Contact psychiatry if further follow up or reevaluation is desired. Follow up with outpatient mental health for medication management and therapy. 5. Case discussed with team [id number] Jasmine. Assessment/Diagnosis/Plan Reviewed: Labs, Medications, Previous Orders MAR MACE MD November 30, 2024 05:55
[2024-11-30 07:20] LABS: Alanine Aminotransferase 45 U/L (7-40); Albumin 4.2 g/dL (3.2-4.8); Alkaline Phosphatase 92 U/L (46-116); Anion Gap 9 (5-15); Aspartate Aminotransferase 47 U/L (13-40); BUN/Creatinine Ratio 12.7 (10.0-20.0); Blood Urea Nitrogen 9 mg/dL (9-23); Calcium 9.5 mg/dL (8.7-10.4); Carbon Dioxide 23 mmol/L (20-31); Chloride 106 mmol/L (98-107); Cholesterol 131 mg/dL (< 200); Glucose 94 mg/dL (74-106); HDL Cholesterol 56 mg/dL (40-59); LDL Cholesterol 64 mg/dL (< 100); Magnesium 2.4 mg/dL (1.6-2.6); Potassium 3.8 mmol/L (3.5-5.1); Sodium 138 mmol/L (136-145); Total Protein 6.7 g/dL (5.7-8.2); Triglycerides 82 mg/dL (< 150)
[2024-11-30] MEDS: THIAMINE HCL 100 MG TAB PO SCH (09:26)
[2024-11-30] MEDS: FOLIC ACID 1 MG TAB PO SCH (09:27)
[2024-11-30] MEDS ORDERED: chlordiazePOXIDE HCL 5 MG CAP PO PRN (12:00)
[2024-11-30] MEDS: GABAPENTIN 100 MG CAP PO ONE (12:00)
--- NOTE | 2024-11-30 12:00 | DVHPN2 ---
Subjective He is still having anxiety and tremors although he is looking better today and little more calm Changes from previous H/P or p: Changes Eyes: No Pain, No Vision change, No Conjunctivae inflammation, No Eyelid inflammation, No Other, No Redness ENT: No Ear pain, No Ear discharge, No Nose pain, No Nose discharge, No Nose congestion, No Mouth pain, No Mouth swelling, No Throat pain, No Throat swelling, No Other Cardiovascular: No Chest Pain, No Palpitations, No Orthopnea, No Paroxysmal Noc. Dyspnea, No Edema, No Lt Headedness, No Other Respiratory: No Cough, No Dry, No Shortness of breath, No SOB with excertion, No Wheezing, No Hemoptysis, No Pleuritic Pain, No Sputum, No Other Gastrointestinal: No Nausea, No Vomiting, No Abdominal Pain, No Diarrhea, No Constipation, No Melena, No Hematochezia, No Other Genitourinary: No Dysuria, No Frequency, No Incontinence, No Hematuria, No Retention, No Other Musculoskeletal: No other, No neck pain, No shoulder pain, No arm pain, No back pain, No hand pain, No leg pain, No foot pain Skin: No Rash, No Lesions, No Jaundice, No Bruising, No Other Objective Vitals Vital Signs Date Time Temp Pulse Resp B/P (MAP) Pulse Ox O2 Delivery O2 Flow Rate FiO2 11/30/24 09:00 98.0 112 21 129/88 (102) 99 98.0 11/30/24 07:50 Room Air* 0 21 Intake/Output Intake and Output 11/30/24 07:00 Intake Total 1173 ml Balance 1173 ml Intake Oral 1173 ml # Voids 6 General Appearance: Alert, Oriented X3 Lungs: Clear to auscultation Cardiovascular: Regular rate, Normal S1, Normal S2 Medications Current Medications Medications Dose Ordered Sig/Sharon Route Start Time Stop Time Status Last Admin Dose Admin Multivitamins 1 tab DAILY PO 11/28/24 10:00 11/30/24 09:26 1 TAB Sodium Chloride 1,000 ml @ 60 mls/hr [id number] IV 11/29/24 10:45 11/29/24 10:49 60 MLS/HR Ondansetron HCl 4 mg Q4HP PRN IV 11/29/24 10:45 Docusate Sodium 100 mg BIDPRN PRN PO 11/29/24 10:45 Acetaminophen 650 mg Q6HP PRN PO 11/29/24 10:45 Nitroglycerin 0.4 mg Q5MINP PRN SL 11/29/24 10:45 Morphine Sulfate 2 mg Q30M PRN IV 11/29/24 10:45 Folic Acid 1 mg DAILY PO 11/30/24 10:00 11/30/24 09:27 1 MG Thiamine HCl 100 mg DAILY PO 11/30/24 10:00 11/30/24 09:26 100 MG Chlordiazepoxide HCl 10 mg Q6HP PRN PO 11/29/24 11:15 11/30/24 10:19 10 MG Laboratory Results Laboratory Tests 11/28/24 04:20 11/30/24 06:00 Chemistry Test 11/30/24 06:00 Albumin 4.2 g/dL (3.2-4.8) Calcium Level 9.5 mg/dL (8.7-10.4) Magnesium Level 2.4 mg/dL (1.6-2.6) Total Protein 6.7 g/dL (5.7-8.2) Lipid panel Test 11/30/24 06:00 Cholesterol Level 131 mg/dL (< 200) HDL Cholesterol 56 mg/dL (40-59) Triglycerides Level 82 mg/dL (< 150) LFT Test 11/30/24 06:00 Alanine Aminotransferase (ALT) 45 U/L (7-40) H Alkaline Phosphatase 92 U/L (46-116) Aspartate Amino Transferase (AST) 47 U/L (13-40) H Total Bilirubin 1.0 mg/dL (0.2-1.0) Assessment/Plan Assessment/Plan Alcohol withdrawal Hypokalemia, corrected Alcohol use disorder Polydrug abuse Elevated liver function tests Plan Continue IV fluids Benzodiazepines p.r.n. for withdrawal symptoms, we will switch to p.o. Librium Multivitamins Monitor closely The rest of the management will depend on the hospital course 11/30/2024: Anxiety: Hydroxyzine p.r.n. Zoloft 50 mg at bedtime Alcohol withdrawal: Gabapentin, Librium p.r.n. Continue multivitamins and thiamine and folic acid Discontinue the IV fluids Monitor closely Plan discussed with: Patient My Orders Orders - RHONDA AZUL MD Procedure Category Date Status Time Communication Order ORDERS 11/29/24 Transmitted 14:32 * Stable Attendant CONS 11/30/24 Transmitted Consult Chlordiazepoxide Hcl PHA 11/30/24 Verified Capsule (Librium Ca 12:00 Sertraline Hcl PHA 11/30/24 Verified (Zoloft) 22:00 Gabapentin Capsule PHA 11/30/24 Verified (Neurontin Capsule) 22:00 Gabapentin Capsule PHA 11/30/24 Verified (Neurontin Capsule) 12:00 Hydroxyzine Oral PHA 11/30/24 Verified (Vistaril Oral) 12:00 Date of Service: November 30, 2024 Billing Provider: RHONDA AZUL MD Common Visit Codes: [id number] INP/OBS CARE(HIGH) RHONDA AZUL MD November 30, 2024 12:00
[2024-11-30] MEDS: NICOTINE 14 MG/24HR TOPICAL PATCH TD SCH (15:52)
[2024-11-30] MEDS: SERTRALINE HCL 50 MG TAB PO SCH (21:55)
[2024-11-30] MEDS: GABAPENTIN 100 MG CAP PO SCH (21:55)
[2024-11-30] MEDS: hydrOXYzine 25 MG TAB or CAP PO PRN (21:55)
[2024-12-01 05:00] VITALS: BP 132/79; PULSE 80; RESP 19; TEMP 98; O2SAT 99
[2024-12-01 08:00] VITALS: PULSE 82; RESP 18
[2024-12-01 09:03] VITALS: BP 138/96; PULSE 101; RESP 18; TEMP 97.8; O2SAT 97
[2024-12-01] MEDS ORDERED: GAB100C PO (11:30)
[2024-12-01] MEDS ORDERED: SERT50TA PO (11:30)
[2024-12-01] MEDS ORDERED: FOLI-119 PO (11:30)
[2024-12-01] MEDS ORDERED: MULTTAB99 PO (11:30)
[2024-12-01] MEDS ORDERED: THIA100T10 PO (11:30)
[2024-12-01 12:18] VITALS: TEMP 36.6
[2024-12-01 13:00] VITALS: BP 132/78; PULSE 87; RESP 17; TEMP 98.1; O2SAT 95
--- NOTE | 2024-12-01 22:31 | DVHDS2 ---
Discharge Summary Date of Admission November 27, 2024 at 19:26 Date of Discharge: December 01, 2024 Labs/Diagnostic Data: Laboratory Results Test 11/30/24 06:00 11/28/24 04:20 11/27/24 17:03 11/27/24 16:51 Sodium Level 138 mmol/L (136-145) Potassium Level 3.8 mmol/L (3.5-5.1) Chloride Level 106 mmol/L (98-107) Carbon Dioxide Level 23 mmol/L (20-31) Anion Gap 9 (5-15) Blood Urea Nitrogen 9 mg/dL (9-23) Creatinine 0.71 mg/dL (0.700-1.30) Glomerular Filtration Rate Calc 120 mL/min (>90) BUN/Creatinine Ratio 12.7 (10.0-20.0) Serum Glucose 94 mg/dL (74-106) Calcium Level 9.5 mg/dL (8.7-10.4) Magnesium Level 2.4 mg/dL (1.6-2.6) Total Bilirubin 1.0 mg/dL (0.2-1.0) Aspartate Amino Transferase (AST) 47 U/L (13-40) Alanine Aminotransferase (ALT) 45 U/L (7-40) Alkaline Phosphatase 92 U/L (46-116) Total Protein 6.7 g/dL (5.7-8.2) Albumin 4.2 g/dL (3.2-4.8) Triglycerides Level 82 mg/dL (< 150) Cholesterol Level 131 mg/dL (< 200) LDL Cholesterol 64 mg/dL (< 100) HDL Cholesterol 56 mg/dL (40-59) White Blood Count 5.8 10^3/uL (4.4-10.8) Red Blood Count 4.46 10^6/uL (4.5-5.90) Hemoglobin 15.4 g/dL (13.5-17.5) Hematocrit 45.2 % (41.0-53.0) Mean Corpuscular Volume 101.3 fL (80.0-100.0) Mean Corpuscular Hemoglobin 34.6 pg (28.0-32.0) Mean Corpuscular Hemoglobin Concent 34.2 g/dL (32.0-36.0) Red Cell Distribution Width 14.3 % (11.8-14.3) Platelet Count 229 10^3/uL (140-450) Mean Platelet Volume 7.4 fL (6.9-10.8) Neutrophils (%) (Auto) 60.4 % (37.0-80.0) Lymphocytes (%) (Auto) 22.2 % (10.0-50.0) Monocytes (%) (Auto) 16.1 % (0.0-12.0) Eosinophils (%) (Auto) 0.7 % (0.0-7.0) Basophils (%) (Auto) 0.6 % (0.0-2.0) Neutrophils # (Auto) 3.5 10 ^3/uL (1.6-8.6) Lymphocytes # (Auto) 1.3 10 ^3/uL (0.4-5.4) Monocytes # (Auto) 0.9 10 ^3/uL (0-1.3) Eosinophils # (Auto) 0 10 ^3/uL (0-0.8) Basophils # (Auto) 0 10 ^3/uL (0-0.2) Nucleated Red Blood Cells 0.1 % Hepatitis B Surface Antigen Negative (Negative) Hepatitis C Antibody Negative (Negative) Urine Opiates Screen Neg (NEGATIVE) Urine Fentanyl Screen Pos (NEGATIVE) Urine Barbiturates Screen Neg (NEGATIVE) Urine Phencyclidine Screen Neg (NEGATIVE) Urine Amphetamines Screen Neg (NEGATIVE) Urine Benzodiazepines Screen Neg (NEGATIVE) Urine Cocaine Screen Pos (NEGATIVE) Urine Cannabinoids Screen Neg (NEGATIVE) Salicylates Level < 3.0 mg/dL (-30) Acetaminophen Level < 2.0 UG/ML (10.0-20.0) Plasma/Serum Blood Alcohol < 3.0 mg/dL (<10) Other Laboratory Tests 11/30/24 06:00 11/28/24 04:20 Brief Hx & Hospital Course: Final diagnoses: Alcohol withdrawal Hypokalemia, corrected Alcohol use disorder Polydrug abuse Elevated liver function tests Anxiety 39-year-old male was admitted for alcohol withdrawal and was treated with IV Ativan and then with the p.o. Librium He was given a multivitamins and thiamine and folic acid and IV fluids Psychiatry was consulted and he was recommended to start Zoloft and gabapentin Overall he improved slowly and his tremors and anxiety improved Today he was stable for discharge therefore was discharged on Zoloft and gabapentin Condition at Discharge: Stable Final Diagnosis/Problems List Alcohol withdrawal Hypokalemia, corrected Alcohol use disorder Polydrug abuse Elevated liver function tests Anxiety Discharge Disposition: Home SNF Discharge Will this Physician continue t: No Discharge Instruct/Medications Diet: Regular Activity: No Restrictions, As Tolerated Follow Up/Referral: PCP as soon as possible Medications: Zoloft 50 mg at bedtime Neurontin 200 mg b.i.d. Discharge Statement: "Patient was advised to return to the ER or call 911 if any headaches, dizziness, shortness of breath, chest pain, abdominal pain, bleeding, fevers, or worsening of medical condition. Patient was counseled about treatment plan, medications, possible side effects, patientverbalized understanding. All questions were answered to the best of my ability. This discharge took greater then 30 minutes in planning, reviewing documentation, counseling the patient, and discussing with other team members." ASSESSMENT ASSESSMENT Assessment Alcohol withdrawal Hypokalemia, corrected Alcohol use disorder Polydrug abuse Elevated liver function tests Anxiety Date of Service: December 01, 2024 Billing Provider: RHONDA AZUL MD Common Visit Codes: [id number] DISCH DAY >30min RHONDA AZUL MD December 01, 2024 22:31
== END 2024-12-01 15:00 | disposition home or self-care (01) | DRG 816 ==
LOC: EDBD 13:52 → ER 13:52 → OVERFLOW 19:26 → TELE-CENTR 11-28 17:30
PROVIDERS: ADMIT Internal Medicine Geriatric Medicine; ATTEND Internal Medicine Geriatric Medicine
DX: T40.5X1A Poisoning by cocaine, accidental (unintentional), initial encounter (principal); G92.8 Other toxic encephalopathy; E87.6 Hypokalemia; F14.10 Cocaine abuse, uncomplicated; F10.930 Alcohol use, unspecified with withdrawal, uncomplicated; F41.1 Generalized anxiety disorder; Z88.8 Allergy status to other drugs, medicaments and biological substances; F19.10 Other psychoactive substance abuse, uncomplicated; T40.411A Poisoning by fentanyl or fentanyl analogs, accidental (unintentional), initial encounter
CPT/HCPCS: 36415; 80053; 80061; 80307; 80320; 80329; 83735; 85025; 86803; 87340; 96374; 96375; 99291; G0378; J7060